=== PATIENT | female | born 1970 | race Caucasian/White ===

== ENCOUNTER 2017-03-29 13:26 | Emergency (ER) | payer SELFPAY | END 2017-03-29 13:40 | disposition left against medical advice (07) | LOC: MADERS 13:26 | DX: Z53.21 Procedure and treatment not carried out due to patient leaving prior to being seen by health care provider (principal) ==

== ENCOUNTER 2017-11-30 15:43 | Emergency (ER) | payer SELFPAY ==
--- NOTE | 2017-11-30 16:58 | RAD ---
RIGHT FIFTH TOE 3 VIEWS: Date: 11/30/17 HISTORY: Pain. Trauma. COMPARISON: None. FINDINGS: There is a minimally displaced fracture involving the proximal aspect of the proximal phalanx of the fifth digit. There is intraarticular extension. Additional fracture along the distal aspect of the pr oximal phalanx of the fifth digit are noted. IMPRESSION: Fifth digit fractures. POS: [facility]
== END 2017-11-30 16:30 | disposition home or self-care (01) ==
LOC: MADERS 15:43
DX: S92.514A Nondisplaced fracture of proximal phalanx of right lesser toe(s), initial encounter for closed fracture (principal); W22.8XXA Striking against or struck by other objects, initial encounter

== ENCOUNTER 2018-08-14 17:59 | Emergency (ER) | payer SELFPAY ==
[~2018-08-14 17:59] MED LIST: Sodium Chloride 0.9% 1,000 ML BAG ONE
[2018-08-14] MEDS ORDERED: Ketorolac Tromethamine 30 MG/ML VIAL ONE (19:02)
[2018-08-14] MEDS ORDERED: Labetalol HCl 100 MG/20 ML VIAL ONE (19:02)
[2018-08-14] MEDS ORDERED: diphenhydrAMINE 50 MG/ML VIAL ONE (19:02)
[2018-08-14 19:10] LABS: #Basophils 0.1 thou/uL (0.0-0.2); #Eosinphils 0.3 thou/uL (0.0-0.7); #Monocytes 0.4 thou/uL (0.11-0.59); #Neutrophils 2.6 thou/uL (1.40-6.50); %Basophils 1.6 % (0.0-1.0); %Eosinophils 6.1 % (0.0-10.0); %Lymphocytes 37.4 % (21.0-51.0); %Monocytes 6.7 % (0.0-10.0); %Neutrophils 48.2 % (42.0-75.0); Hemoglobin 14.2 g/dL (12.0-16.0); Mean Corpuscular Hemoglobin 31.6 pg (27.0-31.0); Mean Corpuscular Volume 95.7 fL (78.0-98.0); Mean Platelet Volume 8.4 fL (7.4-10.4); Platelet Count 277 thou/uL (130-400); RBC Distribution Width 11.3 % (11.5-14.5); Red Blood Cell (RBC) Count 4.48 mill/uL (4.20-5.40); White Blood Cell (WBC) Count 5.4 thou/uL (4.8-10.8)
--- NOTE | 2018-08-14 19:21 | RAD ---
PORTABLE CHEST: 08/14/18 HISTORY: Headache. Heart size and mediastinum are within normal limits. The lungs are clear of infiltrates. No bony find ings. IMPRESSION: No active intrathoracic disease. POS: [facility]
[2018-08-14 19:23] LABS: ALT (SGPT) 55 U/L (8-55); AST (SGOT) 62 U/L (5-34); Albumin 3.9 g/dL (3.5-5.0); Alkaline Phosphatase 72 U/L (40-150); Anion Gap 16 mmol/L (10-20); BUN (Urea Nitrogen) 14 mg/dL (7.0-18.7); Bilirubin, Total 0.2 mg/dL (0.2-1.2); Calc. Creatinine Clearance 0 mL/min (70-130); Calcium 8.9 mg/dL (7.8-10.44); Carbon Dioxide 22 mmol/L (22-29); Chloride 111 mmol/L (98-107); Estimated GFR-MDRD 84; Globulin 3.1 g/dL (2.4-3.5); Glucose 92 mg/dL (70-105); Potassium 3.6 mmol/L (3.5-5.1); Sodium 145 mmol/L (136-145)
[2018-08-14 19:25] LABS: CKMB 3.2 ng/mL (0-6.6); Troponin I Less than 0.010 ng/mL (< 0.028)
== END 2018-08-14 21:59 | disposition home or self-care (01) ==
LOC: MADERS 17:59
DX: I10 Essential (primary) hypertension (principal); R51 Headache; H53.8 Other visual disturbances; F17.210 Nicotine dependence, cigarettes, uncomplicated
CPT/HCPCS: 71045; 80053; 82553; 84484; 85025; 93005; 96361; 96374; 96375; J1200; J1885; J7050

== ENCOUNTER 2018-10-03 11:32 | Emergency (ER) | payer SELFPAY ==
[2018-10-03] MEDS ORDERED: Ketorolac Tromethamine 30 MG/ML VIAL ONE (11:56)
--- NOTE | 2018-10-03 13:11 | RAD ---
RADIOGRAPH LEFT FOOT 3 VIEWS: Date: 10/03/18 HISTORY: 48-year-old female status post acute traumatic injury to the foot. FINDINGS: No dislocation. No fracture identified. IMPRESSION: Negative. POS: [facility]
--- NOTE | 2018-10-03 13:14 | RAD ---
RADIOGRAPH LEFT LEG TIBIA FIBULA 2 VIEWS: Date: 10/03/18 HISTORY: 48-year-old female status post acute traumatic injury to the left leg. FINDINGS: There is a nondisplaced vertical/oblique linear lucency across the medial aspect of the proximal meta physis of the fibula. No fracture of the tibia is identified. IMPRESSION: Acute, traumatic, nondisplaced linear fracture of the proximal fibular metaphysis. POS: [facility]
--- NOTE | 2018-10-03 13:20 | RAD ---
LEFT ANKLE 3 VIEWS: Date: 10/03/18 INDICATION: History of injury. COMPARISON: None. FINDINGS: No acute fracture or subluxation is evident. There is moderate osteoarthrosis of the left ankle. No a cute fracture or subluxation is evident. IMPRESSION: 1. No acute osseous abnormality. 2. Soft tissue swelling of the left ankle. 3. Moderate osteoarthrosis of the tibiotalar joint. Enthesopathic change off the calcaneus. POS: [facility]
== END 2018-10-03 13:24 | disposition home or self-care (01) ==
LOC: MADERS 11:32
DX: S82.832A Other fracture of upper and lower end of left fibula, initial encounter for closed fracture (principal); I10 Essential (primary) hypertension; F17.210 Nicotine dependence, cigarettes, uncomplicated; W10.9XXA Fall (on) (from) unspecified stairs and steps, initial encounter
CPT/HCPCS: 96372; J1885

== ENCOUNTER 2019-03-22 12:51 | Emergency (ER) | payer SELFPAY ==
[2019-03-22] MEDS ORDERED: Acetaminophen 500 MG TAB ONE (13:07)
[2019-03-22] MEDS ORDERED: Sodium Chloride 0.9% 1,000 ML ONE ×2 (13:07→14:29)
[2019-03-22] MEDS ORDERED: Ibuprofen 600 MG TAB ONE (13:07)
[2019-03-22 13:31] LABS: Hemoglobin 15.2 g/dL (12.0-16.0); Mean Corpuscular Hemoglobin 30.1 pg (27.0-31.0); Mean Corpuscular Volume 93.9 fL (78.0-98.0); Mean Platelet Volume 12.2 fL (7.4-10.4); Platelet Count 139 thou/uL (130-400); RBC Distribution Width 12.1 % (11.5-14.5); Red Blood Cell (RBC) Count 5.07 mill/uL (4.20-5.40); White Blood Cell (WBC) Count 7.5 thou/uL (4.8-10.8)
[2019-03-22 13:51] LABS: Manual Diff?? YES
[2019-03-22 13:52] LABS: Band 1 % (5-11); Eosinophils 2 % (0-10); Lymphocytes 11 % (21-51); MDiff Complete? YES; Monocytes 8 % (0-10); Neutrophil 78 % (42-75)
[2019-03-22 13:53] LABS: Platelet Morphology Comment Appears Adequate
[2019-03-22 13:55] LABS: Anisocytosis SLIGHT = 6-15 cells (100X) (0-5/hpf)
[2019-03-22 13:56] LABS: Anion Gap 12 mmol/L (10-20); BUN (Urea Nitrogen) 13 mg/dL (7.0-18.7); Calc. Creatinine Clearance 0 mL/min (70-130); Calcium 8.3 mg/dL (7.8-10.44); Carbon Dioxide 24 mmol/L (22-29); Chloride 103 mmol/L (98-107); Estimated GFR-MDRD 76; Glucose 104 mg/dL (70-105); Potassium 3.3 mmol/L (3.5-5.1); Sodium 136 mmol/L (136-145)
[2019-03-22 14:12] LABS: Bilirubin Moderate (Negative); Blood, Urine Small (Negative); Clarity Slightly Cloudy (Clear); Glucose, Urine (Dipstick) 100 mg/dL (Negative); Leukocyte Trace (Negative); Nitrite Positive (Negative); Protein, Urine (Dipstick) > or equal to 300 mg/dL (Neg-Trace); Specific Gravity, Urine 1.025 (1.005-1.030); Urobilinogen > or = 8.0 mg/dL (0.2-1.0)
[2019-03-22 14:15] LABS: Bacteria/HPF 3+ HPF (None Seen)
[2019-03-22] MEDS ORDERED: cefTRIAXone\\ROCEPHIN 1 GM VIAL ONE (14:19)
== END 2019-03-22 15:40 | disposition home or self-care (01) ==
LOC: MADERS 12:51
DX: N12 Tubulo-interstitial nephritis, not specified as acute or chronic (principal); I10 Essential (primary) hypertension; F17.210 Nicotine dependence, cigarettes, uncomplicated
CPT/HCPCS: 80048; 81003; 81015; 83605; 85025; 87040; 87077; 87086; 87149; 87186; 87804; 96361; 96374; J0696; J7050

== ENCOUNTER 2019-07-13 19:07 | Emergency (ER) | payer SELFPAY ==
[2019-07-13] MEDS ORDERED: Acetaminophen 500 MG TAB ONE (19:36)
--- NOTE | 2019-07-13 20:07 | RAD ---
LEFT WRIST FOUR VIEWS: 07/13/19 HISTORY: Fall. Trauma. Pain. COMPARISON: None. FINDINGS: Indeterminate fracture involving the proximal left humerus. If there is pain or point tenderness, ded icated humerus radiograph is recommended. With regards to the left ribs, no fracture. No cortical irregularity or periosteal reaction. IMPRESSION: 1. No evidence of a left rib fracture. 2. Indeterminate fracture involving the proximal left humerus. Correlate clinically. If there is pain or point tenderness, dedicated left humerus radiograph is recommended. POS: [facility]
== END 2019-07-13 20:18 | disposition home or self-care (01) ==
LOC: MADERS 19:07
DX: S23.41XA Sprain of ribs, initial encounter (principal); I10 Essential (primary) hypertension; F17.210 Nicotine dependence, cigarettes, uncomplicated; Z79.899 Other long term (current) drug therapy; Z71.6 Tobacco abuse counseling; W10.9XXA Fall (on) (from) unspecified stairs and steps, initial encounter
CPT/HCPCS: 99406

== ENCOUNTER 2019-10-02 14:19 | Emergency (ER) | payer SELFPAY ==
--- NOTE | 2019-10-02 16:12 | CT ---
CT BRAIN WITH AND WITHOUT CONTRAST: DATE: 10/02/2019 HISTORY: 49-year-old female status post acute head trauma TECHNIQUE: Precontrast scan of the brain. IV injection of iodinated contrast media. Postcontrast scan of brain. FINDINGS: There is no evidence of acute intra-axial or extra-axial hemorrhage. There is no midline shift or any other mass effect. There is no extra-axial fluid collection. There is no evidence of obstructive hydrocephalus. There is no abnormal enhancement or mass. Calvarium is intact. Superficial soft tissue hematoma of left frontotemporal parietal occipital scalp. IMPRESSION: 1. No acute or aggressive intracranial findings. 2. Diffuse, broad, left-sided acute, traumatic scalp hematoma
--- NOTE | 2019-10-02 16:16 | CT ---
CT CERVICAL SPINE NONCONTRAST: DATE: 10/02/2019 HISTORY: cervical trauma FINDINGS: There are no jumped or perched facets. There is no evidence of acute fracture. The vertebral body hei ghts are maintained. There is no prevertebral soft tissue swelling. There are degenerative disc changes and facet osteoarthrosis. IMPRESSION: 1) Cervical spondylosis. 2) no evidence of acute fracture or acute traumatic subluxation.
[2019-10-02] MEDS ORDERED: Ondansetron ODT 4 MG TAB ONE (16:25)
[2019-10-02] MEDS ORDERED: Acetaminophen 500 MG TAB ONE ×2 (16:26)
== END 2019-10-02 16:30 | disposition home or self-care (01) ==
LOC: MADERS 14:19
DX: S00.03XA Contusion of scalp, initial encounter (principal); S00.12XA Contusion of left eyelid and periocular area, initial encounter; S00.11XA Contusion of right eyelid and periocular area, initial encounter; I10 Essential (primary) hypertension; F17.210 Nicotine dependence, cigarettes, uncomplicated; Y04.0XXA Assault by unarmed brawl or fight, initial encounter
CPT/HCPCS: 70450; 72125; L0120; Q0162

== ENCOUNTER 2020-02-18 14:41 | Outpatient (CLI) | payer OTHER ==
--- NOTE | 2020-02-18 15:21 | RAD ---
Exam:2 views left hip HISTORY: Pain COMPARISON: None FINDINGS: Moderate degenerative change. No fracture. IMPRESSION: Moderate degenerative change.
== END 2020-02-18 14:42 | disposition home or self-care (01) ==
LOC: MADRAD 14:41
PROVIDERS: ATTEND Family Medicine
DX: M25.552 Pain in left hip (principal); M16.12 Unilateral primary osteoarthritis, left hip